=== PATIENT | female | born 1980 | race Two or more races ===

== ENCOUNTER 2022-09-23 11:42 | Emergency (ER) | payer SELFPAY ==
[~2022-09-23] VITALS: Ht 167.6 cm; Wt 80.0 kg
[2022-09-23] MEDS ORDERED: NALOXONE HCL 0.4 MG/ML 1ML VIAL IV ONE (13:15)
[2022-09-23] MEDS ORDERED: CLONIDINE 0.1MG TABLET PO ONE (14:00)
[2022-09-23] MEDS ORDERED: LORAZEPAM 1MG TABLET PO ONE (14:00)
[2022-09-23 14:13] LABS: BASOPHILS % 1.4 % (0.0-2.0); EOSINOPHILS % 4.3 % (0.0-5.0); HEMATOCRIT. 35.7 % (36.0-48.0); HEMOGLOBIN. 12.1 g/dL (12.0-16.0); LYMPHOCYTES % 53.2 % (20.0-50.0); MEAN CORPUSCULAR HEMOGLOBIN 31.5 pg (28.0-32.0); MEAN CORPUSCULAR VOLUME 92.7 fL (81.0-99.0); MEAN PLATELET VOLUME 9.3 fl (7.4-10.4); MONOCYTES % 7.7 % (2.0-8.0); NEUTROPHILS % 33.4 % (40.0-76.0); PLATELET 212 x1000/uL (130-400); RED BLOOD CELL COUNT 3.86 mill/uL (4.2-5.4); RED CELL DISTRIBUTION WIDTH 13.8 % (11.6-14.6)
[2022-09-23 14:20] LABS: CHLORIDE 106 mEq/L (98-107)
[2022-09-23 14:28] LABS: HCG SCREEN NEGATIVE; INR 1.1; PROTHROMBIN TIME 11.8 sec (9.6-11.0)
[2022-09-23 14:29] LABS: ETHANOL BLOOD < 10 mg/dL
[2022-09-23] MEDS ORDERED: NALO4SPR BOTHNSTRLS (21:50)
[2022-09-23 22:19] VITALS: BP 120/69
== END 2022-09-23 22:21 | disposition home or self-care (01) ==
LOC: ER 11:57
DX: T40.2X2A Poisoning by other opioids, intentional self-harm, initial encounter (principal); X58.XXXA Exposure to other specified factors, initial encounter; Z86.73 Personal history of transient ischemic attack (TIA), and cerebral infarction without residual deficits
CPT/HCPCS: 36415; 80053; 80320; 84703; 85025; 85610; 96374; 99291; J2310; G0480